=== PATIENT | female | born 1970 | race African-American/Black ===

== ENCOUNTER 2016-10-05 05:21 | Day surgery (SDC) | payer BC ==
[~2016-10-05] VITALS: Ht 167.6 cm; Wt 98.0 kg
--- NOTE | ~2016-10-05 | O ---
[facility] [place] [address] OPERATIVE REPORT Name: GIANLUCA GREENFIELD Room #: 150-6 [facility] M..#: [id number] Admission: 10/05/16 Attend Phys: Harsha Chakraborty MD Discharge: Date of : 70 Report #: [id number] THIS REPORT FOR: //name// CC: Ghulam Chakraborty DATE OF SERVICE: 10/05/2016 PREOPERATIVE DIAGNOSIS: Right knee degenerative posterior horn medial meniscus tear. POSTOPERATIVE DIAGNOSES. 1. Right knee degenerative posterior horn medial meniscus tear. 2. Grade 3 chondromalacia of the medial femoral condyle. 3. 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 4. 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 PROCEDURE: 1. Right knee arthroscopy with partial medial meniscectomy. 2. Chondroplasty of the medial femoral condyle, lateral tibial plateau, and trochlear groove. SURGEON: Harsha Chakraborty MD. TRACK LAYER: Iris Mueller PA-C. ANESTHESIA: LMA. TOURNIQUET TIME: Approximately 22 minutes. COMPLICATIONS: None. SPECIMENS: None. CONDITION UPON LEAVING THE OPERATING ROOM: Stable. INDICATIONS FOR PROCEDURE: The patient is a 46-year-old female who has had medial-sided right knee pain. She had an MRI scan showing her to have a degenerative tear of the posterior horn medial meniscus. After discussion with her, she elected for right knee arthroscopy with partial medial meniscectomy and debridement as needed. DESCRIPTION OF PROCEDURE: Risks, benefits, alternatives, complications were discussed in detail with the patient including but not limited to risk of anesthesia, risk of damage to nerves, arteries, blood vessels, risk for infection, bleeding, risk for continued knee pain and need for reoperation. [address] [address] OPERATIVE REPORT Name: GIANLUCA GREENFIELD Room #: 150-6 [facility]..#: [id number] Admission: 10/05/16 Attend Phys: Harsha Chakraborty MD Discharge: Date of : 70 Report #: [id number] Informed consent was obtained from the patient. Right knee was appropriately marked in the preoperative holding area. She was brought to the operating room and placed in supine position on the operating room table. LMA anesthesia was induced without complication. Tourniquet was placed on the right thigh. Right lower extremity was prepped and draped in normal sterile fashion. A timeout was performed properly identifying the patient and procedure as well as instrumentation. All in the operating room were in agreement. Right lower extremity was exsanguinated, tourniquet was inflated. Tourniquet time was approximately 22 minutes. Standard anterolateral portal was established with an 11 blade through the skin. Arthroscope was introduced into the patellofemoral compartment, diagnostic arthroscopy was undertaken. Patellofemoral compartment was visualized and found to have grade 3 chondromalacia of the patella. Medial gutter was visualized and found to be without pathology. Medial compartment was visualized and medial portal was established under arthroscopic visualization. Probe was introduced into the medial compartment and there was noted to be a complex degenerative type tear of the posterior horn of the medial meniscus. This was trimmed back to a stable rim with an arthroscopic biter and smoothed back with a shaver. In addition, there was grade 3 chondromalacia of the medial femoral condyle and chondroplasty of this area was performed. Notch was visualized and found to have an intact ACL. Lateral compartment was visualized and found to have an intact lateral meniscus. There was grade 3 chondromalacia of the lateral tibial plateau which was smoothed back with an oscillating shaver. The lateral gutter was visualized and found to be without pathology. Scope was placed back in the patellofemoral compartment and chondroplasty of the patella was performed. In addition, there were areas of grade 3 chondromalacia of the trochlear groove and chondroplasty of this area was performed too. After this, all fluid was allowed to drain from the knee. Knee was injected with 5 mL of 0.5% Marcaine. Incision was closed with 3-0 nylon. Soft dressing of Adaptic, 4 x 4, Webril, Dm wrap were applied. The patient tolerated this procedure well and went to the recovery room under care of anesthesia postoperatively. <ELECTRONICALLY SIGNED> By: Harsha Chakraborty MD 10/06/16 [id number] Harsha Chakraborty MD /nt
[~2016-10-05 05:21] MED LIST: COD LIVER OIL1 EACH PO; FLAX OIL1000 MG PO; LIPITOR 20 MG T20 M1 PO; TURMERIC500 M1 PO; VITAMIN B-COMP1 EAC3 PO
[2016-10-05 14:13] LABS: CALCIUM 8.9 mg/dL (8.5-10.1); CREATININE 0.8 mg/dL (0.6-1.3); POTASSIUM 4.1 mmol/L (3.5-5.1)
[2016-10-05 14:18] LABS: ALBUMIN 3.6 g/dL (3.4-5.0); TOTAL BILIRUBIN 0.3 mg/dL (<0.1-1.0); TOTAL PROTEIN 7.2 g/dL (6.4-8.2)
[2016-10-05] MEDS ORDERED: HYDROCODONE-AP1 EAC6 PO (16:14)
== END 2016-10-05 18:30 | disposition home or self-care (01) ==
LOC: TBA 05:21 → OR 05:21
PROVIDERS: Orthopaedic Surgery
DX: M23.221 Derangement of posterior horn of medial meniscus due to old tear or injury, right knee (principal); M94.261 Chondromalacia, right knee; I10 Essential (primary) hypertension; Z90.710 Acquired absence of both cervix and uterus; Z85.3 Personal history of malignant neoplasm of breast; Z98.890 Other specified postprocedural states
CPT/HCPCS: 50010; 50101; 50405; 50612; 51038; 54170; 56526; 62110; 62900; 64037; 70005